=== PATIENT | female | born 1975 | race Caucasian/White ===

== ENCOUNTER → 2022-07-31 14:59 | Outpatient (BNVA) | payer MEDICARE, SELFPAY | PROVIDERS: PCP Student in an Organized Health Care Education/Training Program; Visit Provider Nurse Practitioner Family | DX: Z12.11 Encounter for screening for malignant neoplasm of colon (principal) | CPT/HCPCS: 99202 ==

== ENCOUNTER 2023-04-04 10:08 | Outpatient (REF) | payer MEDICARE, SELFPAY ==
[2023-04-04 14:15] LABS: MANUAL DIFF FLAG NO
[2023-04-04 14:18] LABS: Basophils Absolute Auto 0.1 X10*3/uL (0.0-0.2); Basophils Percent Auto 0.6 % (0-2); Eosinophils Absolute Auto 0.5 X10*3/uL (0.0-0.4); Eosinophils Percent Auto 4.6 % (0-4); Hematocrit 41.3 % (37.0-47.0); Hemoglobin 13.6 g/dl (12.0-16.0); Imm Gran Abs Auto 0.04 X10*3/uL (0.00-0.03); Imm Gran Pct Auto 0.4 % (0.0-0.4); Lymphocytes Absolute Auto 2.4 X10*3/uL (1.2-4.9); Lymphocytes Percent Auto 23.9 % (20-40); Mean Corpuscular HGB Conc 32.9 g/dl (31.0-35.0); Mean Corpuscular Hemoglobin 28.5 pg (27.0-33.0); Mean Corpuscular Volume 86.6 fL (80.0-98.0); Mean Platelet Volume 12.2 fL (9.4-12.3); Monocytes Absolute Auto 0.6 X10*3/uL (0.1-1.2); Monocytes Percent Auto 5.6 % (2-11); Neutrophils Absolute Auto 6.4 x10*3/uL (2.0-8.3); Neutrophils Percent Auto 64.9 % (45-73); Platelet Count 259 X10*3/uL (160-400); Red Blood Count 4.77 X10*6/uL (4.20-5.50); Red Cell Distribution Width 13.2 % (11.0-16.0); White Blood Count 9.9 X10*3/uL (4.8-10.8)
[2023-04-04 14:33] LABS: Alanine Aminotransferase 18 U/L (0-31); Albumin Level 4.1 g/dL (3.5-5.0); Alkaline Phosphatase 64 U/L (39-117); Anion Gap 14 (12-20); Aspartate Amino Transferase 16 U/L (5-31); Bilirubin Direct 0.3 mg/dL (0.0-0.5); Bilirubin Total 0.5 mg/dL (0.0-1.0); Blood Urea Nitrogen 10 mg/dL (9-16); Calcium 9.4 mg/dL (8.4-10.2); Carbon Dioxide 21 mmol/L (22-29); Chloride 106 mmol/L (96-108); Cholesterol 162 mg/dL (<200); Estimated Glomerular Filt Rate > 60; Glucose Fasting 72 mg/dL (60-99); HDL Cholesterol 40 mg/dL (>40); LDL Cholesterol Calculated 107 mg/dL (<100); Potassium 3.7 mmol/L (3.3-5.1); Sodium 137 mmol/L (135-145); Total Protein 7.6 g/dL (6.5-8.0); Triglycerides 76 mg/dL (<150)
[2023-04-05 08:37] LABS: ~Hepatitis C Antibody Nonreactive (Nonreactive)
[2023-04-07 17:27] LABS: HIV RNA PCR Qn Copies Not Detected Copies/mL; HIV RNA PCR Qn Log Copies Not Detected Log cps/mL
== END 2023-04-04 10:09 | disposition home or self-care (01) ==
LOC: HO.CHCLDS 10:08
PROVIDERS: Visit Provider Student in an Organized Health Care Education/Training Program
DX: Z00.00 Encounter for general adult medical examination without abnormal findings (principal); F32.A Depression, unspecified; E78.5 Hyperlipidemia, unspecified
CPT/HCPCS: 36415; 80048; 80061; 80076; 85025; 86803; 87536; 87900

== ENCOUNTER 2024-08-25 09:20 | Outpatient (REF) | payer MEDICARE, SELFPAY ==
--- OUTSIDE RECORDS SUMMARY | 2024-08-25 10:01 | XMS_ITS | Encounter Summary ---
Author Organization [employer] Address [address] [place] [address] Care Team Providers Care Overnight Caregiver Name Role Phone Carolina Marina MD Primary Care Provider [phone] Reason for Visit * Reason Onset Date Comments Appointment Request 08/20/2024 Encounter Details Date Type Department Care Team ([facility] Contact Info) Description 08/20/2024 Telephone [facility] MEDICINE [address] [place] [address] Carolina Marina MD [address] [place] [address] Appointment Request Social History Tobacco Use Types Packs/Day Years Used Date Smoking Tobacco: Never Smokeless Tobacco: Never Alcohol Use Standard Drinks/Week Comments Never 0 (1 standard drink = 0.6 oz pur e alcohol) Alcohol Answer Date Recorded Frequency of Alcohol Consumption Not on file 04/04/2023 Average Number of Drinks Not on file 023 Frequency of Binge Drinking Not on file 09/2022 Score 0 04/04/2023 Depression Answer Date Recorded Patient Health Questionnaire-9 Score 5 04/04/2023 Housing Stability Answer Date Recorded What is your housing situation today? I have zane rueda 04/16/[address] you li ve. Do you have problems with any of the following? None of the above 04/16/2023 Food Insecurity Answer Date Recorded Within the past 12 months, y ou worried that your food would run out before you got money to buy more: Never True 04/16/2023 Within the past 12 months,th e food you bought just didn't last and you didn't have enough money to get more: Never True Transportation Answer Date Recorded In the past 12 months, has l ack of transportation kept you from medical appts, meetings, work or from getting things needed for daily living? No 04/16/2023 Utilities Answer Date Recorded In the past 12 months, has t he electric, gas, oil or water company threatened to shut off services in your home? No 04/16/2023 Depression Answer Date Recorded Patient Health Questionnaire-2 Score 2 04/04/2023 Comments No Sex and Gender Information Value Date Recorded Sex Assigned at Female 05/01/2022 10:16 AM EDT Legal Sex Female 10:16 AM EDT Gender Identity Female 05/01/2022 10:16 AM EDT Sexual Orientation Straight 05/01/2022 10 :16 AM EDT documented as of this encounter Miscellaneous Notes * Telephone Encounter - Dharmesh Kingstonnandez - 08/20/2024 3:58 PM EST Tc from pt requesting a Apt with PCP. Pt states would like to talk to her and get a Physical done. Contact pt at [phone] documented in this encounter Plan of Treatment Upcoming Encounters Date Type Department Care Team ([facility] st Contact Info) Description 09/25/2024 11:00 AM EDT Procedure Visit [facility] MED & PEDS [address] [place] [address] Stormy Schwartz CNM [address] [place] [address] 11/28/2024 9:30 AM EDT Clinical Support [facility] MED & PEDS [address] [place] [address] documented as of this encounter Visit Diagnoses Not on filedocumented in this encounter Additional Health Concerns Assessment Noted Time PHQ-9 Depression Total Score: 5 04/04/20 23 9:51 AM EDT documented as of this encounter Care Teams Overnight Caregiver Relationship Specialty Start Date End Date Carolina Marina MD [address] [place] [address] PCP - General Family Medicine 06/17/12 documented as of this encounter
--- OUTSIDE RECORDS SUMMARY | 2024-08-25 10:01 | XMS_ITS | Encounter Summary ---
Author Organization [employer] Address [address] [place] [address] Care Team Providers Care Oil Well Cable Tool Operator Name Role Phone Carolina Marina MD Primary Care Provider Encounter Details Date Type Department Care Team (Latest Contact Info) Description 08/25/2024 Travel Social History Tobacco Use Types Packs/Day Years [...] Answer Date Recorded Patient Health Questionnaire-9 Score 7 08/25/2024 Patient Health Questionnaire-9 Score 7 08/25/2024 Last PHQ-9: Questionnaire Data Not on file 0 08/25/2024 Housing Stability Answer Date Recorded What is [...] Answer Date Recorded Patient Health Questionnaire-2 Score 4 08/25/2024 Comments No Sex and Gender Information Value Date Recorded Sex Assigned at Female 05/01/2022 10:16 AM EDT Legal Sex Female 10:16 AM EDT Gender Identity Female 05/01/2022 10:16 AM EDT Sexual Orientation Straight 05/01/2022 10 :16 AM EDT documented as of this encounter Plan of Treatment Upcoming Encounters Date Type Department Care Team ([facility] st Contact Info) Description 09/25/2024 11:00 AM EDT Procedure Visit [facility] MED & PEDS [address] [place] [address] Stormy Schwartz CNM [address] [place] [address] 11/28/2024 9:30 AM EDT Clinical Support [facility] MED & PEDS [address] [place] [address] documented as of this encounter Visit Diagnoses Not on filedocumented in this encounter Additional Health Concerns Assessment Noted Time PHQ-9 Depression Total Score: 7 08/25/19 25 8:48 AM EST documented as of this encounter Care Teams Oil Well Cable Tool Operator Relationship Specialty Start Date End Date Carolina Marina MD [address] [place] [address] PCP - General Family Medicine 06/17/12 documented as of this encounter
--- OUTSIDE RECORDS SUMMARY | 2024-08-25 10:01 | XMS_ITS | Encounter Summary ---
Author Organization [employer] [facility] Address [address] [facility] 7 [place] [address] Care Team Providers Care Academic Dean Name Role Phone Marcello Marina MD Primary Care Provider [phone] Reason for Referral * Imaging (Routine) - Pending Review Specialty Diagnoses / Procedures Referred By Contmehdi t Referred To Contact Radiology Diagnoses Encounter for screening mammogram for breast cancer Procedures BI Mammogram Screening Tomosynthesis Bilateral Marcello Marina MD [address] [place] [address] Phone: tel: fax: [address] Phone: tel: fax: Referral ID Status Reason Start Date Expiration Date V isits Requested Visits Authorized [id number] Pending Review 08/25/2024 08/25/2025 1 1 Reason for Visit * Reason Comments Annual Exam Encounter Details Date Type Department Care Team ([facility] Contact Info) Description 08/25/2024 8:30 AM EST Office Visit [facility] MED & PEDS [address] [place] [address] Marcello Marina MD [address] [place] [address] Elevated BP without diagnosis of hypertension (Primary Dx); Encounter for screening mammogram for breast cancer; Encounter for immunization; Screen for STD (sexually transmitted disease); Gastroesophageal reflux disease without esophagitis Social History Tobacco Use Types Packs/Day Years Used Date Smoking Tobacco: Never Smokeless Tobacco: Never Tobacco Cessation:Counseling Given: Not Answered Alcohol Use Standard Drinks/Week Comments Never 0 [...] AM EDT documented as of this encounter Last Filed Vital Signs Vital Sign Reading Time Taken Comments Blood Pressure 140/89 08/25/2024 8:46 AM EST Pulse 65 08/25/2024 8:46 AM EST Temperature 36.3 ??C (97.3 ??F) 08/25/2024 8:46 AM ES T Respiratory Rate 18 08/25/2024 8:46 AM EST Oxygen Saturation - - Inhaled Oxygen Concentration - - Weight 78.9 kg (174 lb) 08/25/2024 8:46 AM EST Height 158.8 cm (5' 2.5 ) 08/25/2024 8:46 AM EST Body Mass Index 31.32 08/25/2024 8:46 AM EST documented in this encounter Progress Notes * Marcello Marina MD - 08/25/2024 8:30 AM EST Subjective Patient ID: Mellisa Shin is a 49 y.o. female who presents for Annual Exam. Hypertension This is a new problem. The current episode started more than 1 month ago. The problem is unchanged.The problem is uncontrolled. Pertinent negatives include no chest pain, headaches, neck pain, palpitations or shortness of breath. Risk factors for coronary artery disease include family history, obesity and sedentary lifestyle. Past treatments include nothing. Review of Systems Constitutional: Negative. Respiratory: Negative. Negative for shortness of breath. Cardiovascular: Negative for chest pain and palpitations. Gastrointestinal: Negative. Genitourinary: Negative. Musculoskeletal: Negative for neck pain. Neurological: Negative for headaches. Objective Physical Exam Constitutional: Appearance: Normal appearance. HENT: Head: Normocephalic and atraumatic. Right Ear: Tympanic membrane normal. Left Ear: Tympanic membrane normal. Mouth/Throat: Mouth: Mucous membranes are moist. Eyes: Pupils: Pupils are equal, round, and reactive to light. Cardiovascular: Rate and Rhythm: Normal rate and regular rhythm. Pulmonary: Effort: Pulmonary effort is normal. Breath sounds: Normal breath sounds. Abdominal: General: Abdomen is flat. Palpations: Abdomen is soft. Musculoskeletal: General: Normal range of motion. Skin: General: Skin is warm. Neurological: General: No focal deficit present. Mental Status: She is alert. Psychiatric: Mood and Affect: Mood normal. Behavior: Behavior normal. Assessment/Plan Diagnoses and all orders for this visit: Elevated BP without diagnosis of hypertension Maintain a low-sodium diet (less than 2 grams per day). Maintain a regular cardiovascular exercise program. Advised to maintain a low-fat, low-cholesterol diet. Counseled regarding importance of weight loss. Counseled re: potential co-morbidities including cardiovascular disease. - Basic Metabolic Panel; Future - Lipid Panel, Standard; Future - Hepatic Function Panel; Future - Hemoglobin A1c; Future Encounter for screening mammogram for breast cancer Encounter for immunization - TDAP VACCINE 7 yrs + Screen for STD (sexually transmitted disease) - Hepatitis C Antibody with Reflex to HCV, RNA, Quantitative, Real-Time PCR; Future - HIV-1/2 Antigen and Antibodies, Fourth Generation, with Reflexes; Future Gastroesophageal reflux disease without esophagitis Other orders Avoid provocative foods: citrus, alcohol, coffee, chocolate, mints. Eat smaller meals, no eating three hours prior to bedtime. Started on Omeprazole daily - omeprazole OTC (PriLOSEC OTC) 20 MG EC tablet; Take 1 tablet (20 mg) by mouth before breakfast. - Blood Pressure kit; Check blood pressure daily documented in this encounter Miscellaneous Notes * Addendum Note - Marcello Marina MD - 08/25/2024 8:30 AM ESTAddended by: MARCELLO MARINA on: 08/25/2024 09:34 AM Modules accepted: Orders documented in this encounter Plan of Treatment Upcoming Encounters Date Type Department Care Team ([facility] st Contact Info) Description 09/25/2024 11:00 AM EDT Procedure Visit [facility] MED & PEDS [address] [place] [address] Stormy Schwartz, [place] [address] [place] [address] 11/28/2024 9:30 AM EDT Clinical Support [facility] MED & PEDS [address] [place] [address] Scheduled Orders Name Type Priority Associated Diagnoses Orde r Schedule Basic Metabolic Panel Lab Routine Elevated BP without diagnosis of hypertension Expected: 08/25/2024 (Approximate), Expires: 08/25/2025 Lipid Panel, Standard Lab Routine Elevated BP without diagnosis of hypertension Expected: 08/25/2024 (Approximate), Expires: 08/25/2025 Hepatic Function Panel Lab Routine Elevated BP without diagnosis of hypertension Expected: 08/25/2024 (Approximate), Expires: 08/25/2025 Hemoglobin A1c Lab Routine Elevated BP without diagnosis of hypertension Expected: 08/25/2024 (Approximate), Expires: 08/25/2025 Hepatitis C Antibody with Reflex to HCV, RNA, Quantitative, Real-Time PCR Lab Routine Screen for STD (sexually transmitted disease) Expected: 08/25/2024, Expires: 08/25/2025 HIV-1/2 Antigen and Antibodies, Fourth Generation, with Reflexes Lab Routine Screen for STD (sexually transmitted disease) Expected: 08/25/2024 (Approximate), Expires: 08/25/2025 BI Mammogram Screening Tomosynthesis Bilateral Imaging Routine Encounter for screening mammogram for breast cancer Expected: 08/25/2024, Expires: 10/23/2025 documented as of this encounter Visit Diagnoses Diagnosis Elevated BP without diagnosis of hypertension- Primary Encounter for screening mammogram for breast cancer Encounter for immunization Screen for STD (sexually transmitted disease) Screening examination for venereal disease Gastroesophageal reflux disease without esophagitis Esophageal reflux documented in this encounter Additional Health Concerns Assessment Noted Time PHQ-9 Depression Total Score: 7 08/25/19 25 8:48 AM EST documented as of this encounter Care Teams Academic Dean Relationship Specialty Start Date End Date Marcello Marina MD [address] [place] [address] PCP - General Family Medicine 06/17/12 documented as of this encounter
--- OUTSIDE RECORDS SUMMARY | 2024-08-25 10:01 | XMS_ITS | Encounter Summary ---
Author Organization [employer] Address [address] [place] [address] Care Team Providers Care Insurance Instructor Name Role Phone Carolina Marina MD Primary Care Provider [phone] Encounter Details Date Type Department Care Team (Latest Contact Info) Description 08/24/2024 Travel Social History Tobacco Use Types Packs/Day [...] Upcoming Encounters Date Type Department Care Team ([facility] st Contact Info) Description 09/25/2024 11:00 AM EDT Procedure Visit [facility] MED & PEDS [address] [place] [address] Stormy Schwartz CNM [address] [place] [address] 11/28/2024 9:30 AM EDT Clinical Support [facility] MED & PEDS [address] [place] [address] documented as of this encounter Visit Diagnoses Not on filedocumented in this encounter Additional Health Concerns Assessment Noted Time PHQ-9 Depression Total Score: 5 04/04/20 23 9:51 AM EDT documented as of this encounter Care Teams Insurance Instructor Relationship Specialty Start Date End Date Carolina Marina MD [address] [place] [address] PCP - General Family Medicine 06/17/12 documented as of this encounter
--- OUTSIDE RECORDS SUMMARY | 2024-08-25 10:01 | XMS_ITS | Encounter Summary ---
Author Organization [employer] Address [address] [facility] [address] [place] [address] Care Team Providers Care Molding Machine Operator Helper Name Role Phone Carolina Marina MD Primary Care Provider [phone] Reason for Visit * Reason Onset Date Comments Transition Of Care (Tcm) 08/22/2024 Encounter Details Date Type Department Care Team ([facility] Contact Info) Description 08/22/2024 Telephone [facility] MED & PEDS [address] [place], [place] [phone] Carolina Marina MD [address] [place] [address] Transition Of Care (Tcm) Social History Tobacco Use Types Packs/Day Years [...] encounter Miscellaneous Notes * Telephone Encounter - Rosa Haynes [place] - 08/22/2024 2:37 PM EST Booked a PE appt on 08/[address] Marina at 8:30am. Agreed with date and time. documented in this encounter Plan of Treatment Upcoming Encounters Date Type Department Care Team (Late st Contact Info) Description 09/25/2024 11:00 AM EDT Procedure Visit [facility] MED & PEDS [address] [place] [address] Stormy Schwartz CNM [address] [place] [address] 11/28/2024 9:30 AM EDT Clinical Support [facility] MED & PEDS [address] [place] [address] documented as of this encounter Visit Diagnoses Not on filedocumented in this encounter Additional Health Concerns Assessment Noted Time PHQ-9 Depression Total Score: 5 04/04/20 23 9:51 AM EDT documented as of this encounter Care Teams Molding Machine Operator Helper Relationship Specialty Start Date End Date Carolina Marina MD [address] [place] [address] PCP - General Family Medicine 06/17/12 documented as of this encounter
--- OUTSIDE RECORDS SUMMARY | 2024-08-25 10:01 | XMS_ITS | Clinical Summary ---
Author Organization [employer] Address [address] [facility] [address] [place] [address] Care Team Providers Care Customer Care Professional Name Role Phone Carolina Marina MD Primary Care Provider [phone] Allergies No known active allergies Medications ketoconazole (Nizoral) 2 % shampooIndicat ions:Dandruff in adult Apply topically 2 (two) times a week. 120 mL 3 05/17/20 23 Active ibuprofen 400 MG tablet Take 1 tablet (400 mg) by mouth every 6 (six) hours if needed for moderate pain or fever for up to 30 doses. 30 tablet 11/16/19 24 Active lamoTRIgine (LaMICtal) 100 MG tablet Take 100 mg by mouth Once per day. 10/25/19 24 Active omeprazole OTC (PriLOSEC OTC) 20 MG EC tablet Take 1 tablet (20 mg) by mouth before breakfast. 90 tablet 3 08/25/19 25 026 Active Blood Pressure kit Check blood pressure daily 1 kit 08/25/19 25 Active omeprazole OTC (PriLOSEC OTC) 20 MG EC tablet Take 1 tablet by mouth at bed time. 01/18/20 19 025 Discontinued(Re order (will not trigger notification to Pharmacy)) clobetasol (Temovate) 0.05 % external solution Apply topically 2 times daily. 50 mL 3 04/04/20 23 025 Discontinued buPROPion (Wellbutrin) 75 MG tablet Take 1 tablet (75 mg) by mouth in the morning. 30 tablet 11 04/04/20 23 025 Discontinued fluocinolone (Lolita-Smoothe /FS Body) 0.01 % external oilIndications :Dandruff in adult Apply topically 2 (two) times a week. 118 mL 3 05/17/20 23 025 Discontinued cyclobenzaprin e (Flexeril) 5 MG tablet Take 1 tablet by mouth at bedtime as needed for neck muscle pain 15 tablet 11/16/19 24 025 Discontinued Active Problems Problem Noted Date Diagnosed Date Gastroesophageal reflux disease without esophagi tis 08/25/2024 Depressive disorder 09/26/2011 Encounters Date Type Department Care Team Description 08/25/2024 8:30 AM EST Office Visit [facility] MED & PEDS [address] [place], [place] [phone] Carolina Marina MD Elevated BP without diagnosis of hypertension (Primary Dx); Encounter for screening mammogram for breast cancer; Encounter for immunization; Screen for STD (sexually transmitted disease); Gastroesophageal reflux disease without esophagitis 08/25/2024 Travel 08/24/2024 Travel 08/22/2024 Telephone [facility] MED & PED[facility] [address] [place] [address] Carolina Marina MD Transition Of Care (Tcm) 08/20/2024 Telephone [facility] MEDICINE [address] [place], [place] [phone] Carolina Marina MD Appointment Request from Last 3 Months Immunizations Name Administration Dates Next Due Hep A / Hep B 11/05/2014,09/25/2013,08/27/2013 Influenza, IIV3, injectable 06/05/2014 Tdap 08/25/2024,06/05/2014 Social History Tobacco Use Types Packs/Day Years [...] Orientation Straight 05/01/2022 10 :16 AM EDT Last Filed Vital Signs Vital Sign Reading Time Taken Comments Blood Pressure 140/89 08/25/2024 8:46 AM EST Pulse 65 08/25/2024 8:46 AM EST Temperature 36.3 ??C (97.3 ??F) 08/25/2024 8:46 AM ES T Respiratory Rate 18 08/25/2024 8:46 AM EST Oxygen Saturation 97% 11/16/2023 10:29 AM EDT Inhaled Oxygen Concentration - - Weight 78.9 kg (174 lb) 08/25/2024 8:46 AM EST Height 158.8 cm (5' 2.5 ) 08/25/2024 8:46 AM EST Body Mass Index 31.32 08/25/2024 8:46 AM EST Plan of Treatment Upcoming Encounters Date Type Department Care Team (Late st Contact Info) Description 09/25/2024 11:00 AM EDT Procedure Visit [facility] MED [facility] PED[facility] [address] [place] [address] Stormy Schwartz, CNM [address] [place] [address] 11/28/2024 9:30 AM EDT Clinical Support [facility] P[facility] [address] [place] [address] Health Maintenance Due Date Last Done Comments CT Colonography 1974 Colonoscopy 1974 Colorectal Cancer Screening 1974 Dental Oral Exam 1974 Dental Prophylaxis 1974 Dental X-Ray: Bitewings 1974 Dental X-Ray: Full Mouth 1974 FIT DNA/Cologuard 1974 FIT 1974 FOBT 1974 HIV Screening 1974 Sigmoidoscopy 1974 Family Planning (PISQ) 1989 Pap Smear 1995 Cervical Cancer Screening 01/28/2004 HPV/Cotest 01/28/2004 Mammogram 2014 Pneumococcal Vaccine: 50+ Years (1 of 1 - PCV) 01/28/2024 Zoster Vaccines (1 of 2) 01/28/2024 SDOH Screening 03/26/2024 03/26/2023 Influenza Vaccine (#1) 2024 06/05/2014 Postp oned from 03/02/2024 (Patient Refused) Alcohol/Substance Use Screening 08/25/2025 08/25/2024 COVID-19 Vaccine (3 - 2023-2 5 season) 2025 01/20/2021, 12/23/2020 Postponed from 03/02/2024 (Patient Refused) Depression Screening 08/25/2025 08/25/2024, 08/25/2024 Tobacco Screening 08/25/2025 08/25/2024 DTaP/Tdap/Td Vaccines (3 - T d or Tdap) 08/25/2034 08/25/2024, 06/05/2014 RSV Patients and Patients Aged 60 years or older (1 - 1-dose 75+ series) 2049 Hepatitis A Vaccines Aged Out 11/05/2014, 09/25/2013, 08/27/2013 No longer eligible based on patient's age to complete this topic Hepatitis B Vaccines Completed 11/05/2014, 09/25/2013, 08/27/2013 Hepatitis C Screening Completed 04/04/2023 HIB Vaccines Aged Out No longer eligi ble based on patient's age to complete this topic HPV Vaccines Aged Out No longer eligi ble based on patient's age to complete this topic IPV Vaccines Aged Out No longer eligi ble based on patient's age to complete this topic Meningococcal Vaccine Aged Out No rudolph fariha eligible based on patient's age to complete this topic RSV under 20 months Aged Out No longe r eligible based on patient's age to complete this topic Rotavirus Vaccines Aged Out No longer eligible based on patient's age to complete this topic Procedures Procedure Name Priority Date/Time Associated Diagnosis Comments HEPATITIS C AB W/REFL TO HCV RNA, QN, PCR Routine 04/04/2023 10:15 AM EDT PE (physical exam), annual from Last 3 Months or Most Recently Relevant to Health Maintenance Results * Hepatitis C Antibody with Reflex to HCV, RNA, Quantitative, Real-Time PCR (04/04/2023 10:15 AM EDT) Hepatitis C Antibody Nonreactive Nonreactive [facility] Comment:Antibodies to HCV no t detected; does not exclude early acuteHCV infection. Blood Venous blood specimen / Unknown 04/04/2023 10:15 AM EDT 04/04/2023 2:10 PM EDT us Carolina Marina MD LAB BLOOD ORDERABLES Final Resul t [facility] [address] [place], [place] [id number] [phone] from Last 3 Months or Most Recently Relevant to Health Maintenance Insurance [facility] Care Teams Customer Care Professional Relationship Specialty Start Date End Date Carolina Marina MD [address] [facility] [place] [address] PCP - General Family Medicine 06/17/12
--- OUTSIDE RECORDS SUMMARY | 2024-08-25 10:01 | XMS_ITS | Clinical Summary ---
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 Name Role Phone Carolina Marina MD Primary Care Provider Surgical History Surgery Date Site/Laterality Comments CHOLECYSTECTOMY 2016 PROCEDURE: CA LAPAROSCOPY SURG CHOLECYSTECTOMY; COMMENT: Teena CERVICAL BIOPSY W/ LOOP ELECTRODE EXCISION 06/29/2006 PROCEDURE: CA CONIZATION CERVIX W/WO D&C RPR ELTRD EXC; COMMENT: Teena Medical History Medical History Date Comments Anxiety state DX:Anxiety state History of vitamin D deficiency 11/05/2014 DX:History of vitamin D deficiency; COMMENT: Vitamin D = 17 Bacterial vaginosis 11/29/2011 DX:Bacterial vaginosis Vaginal yeast infection 01/31/2008 DX:Vagin al yeast infection; COMMENT: 11/01/05 H/O Leep 06/29/2006 DX:H/O LEEP; COM MENT: Teena History of colposcopy 04/10/2006 DX:History of colposcopy; COMMENT: OLIVIA 2 ASCUS with positive high ris k HPV cervical 02/12/2006 DX:ASCUS with positive high risk HPV cervical History of chlamydia 01/12/2005 DX:History of chlamydia History of depression DX:History of depression Carpal tunnel syndrome 2012 DX:Carpal tunnel syndrome History of anemia 10/28/2010 DX:History of anemia; COMMENT: H & H 10 33.1 Family History Medical History Relation Name Comments Asthma Maternal Grandfather Arthritis Mother Diabetes Mother Hyperlipidemia Mother Hypertension Mother Stroke Paternal Grandmother Breast cancer Neg Hx Ovarian cancer Neg Hx Relation Name Status Comments Brother x4 Alive Father Alive Maternal Grandfather Mother Alive Paternal Grandmother Sister x3 Alive Social History Tobacco Use Types Packs/Day Years Used Date Smoking Tobacco: Never Smokeless Tobacco: Never Alcohol Use Standard Drinks/Week Comments Yes 0 (1 standard drink = 0.6 oz pur e alcohol) Comments Unknown Sex and Gender Information Value Date Recorded Sex Assigned at Not on file Legal Sex Female 4:39 AM EST Gender Identity Not on file Sexual Orientation Not on file Obstetrics History Last Filed Vital Signs Vital Sign Reading Time Taken Comments Blood Pressure 116/88 03/27/2023 8:55 AM EDT Pulse 69 03/27/2023 8:55 AM EDT Temperature - - Respiratory Rate - - Oxygen Saturation - - Inhaled Oxygen Concentration - - Weight 79.8 kg (176 lb) 03/27/2023 8:55 AM EDT Height 162.6 cm (5' 4 ) 03/27/2023 8:55 AM EDT Body Mass Index 30.21 03/27/2023 8:55 AM EDT Plan of Treatment Health Maintenance Due Date Last Done Comments DTaP,Tdap,and Td Vaccines (1 - Tdap) 1993 Colorectal Cancer Screening: Colonoscopy 06/04/2022 Depression Screening 06/04/2022 HIV Screening 06/04/2022 Hepatitis C Screening 06/04/2022 Social Influencers of Health Screening 06/04/2022 Pneumococcal Vaccine: 50+ Years (1 of 1 - PCV) 01/28/2024 Zoster Vaccines (1 of 2) 01/28/2024 COVID-19 Vaccine (3 - 2023- season) 2024 01/20/2021, 12/23/2020 Influenza Vaccine (#1) 2024 Cervical Cancer Screening: Pap Smear 05/18/2024 05/18/2021, 04/07/2021 Breast Cancer Screening 04/12/2025 04/12/20 23, 05/12/2021, 03/04/2020, Additional history exists Hepatitis A Vaccines Aged Out 11/05/2014, 09/25/2013, 08/27/2013 No longer eligible based on patient's age to complete this topic Hepatitis B Vaccines Completed 11/05/2014, 09/25/2013, 08/27/2013 HIB Vaccines Aged Out No longer eligi ble based on patient's age to complete this topic HPV Vaccines Aged Out No longer eligi ble based on patient's age to complete this topic IPV Vaccines Aged Out No longer eligi ble based on patient's age to complete this topic MMR Vaccines Aged Out No longer eligi ble based on patient's age to complete this topic Meningococcal ACWY Vaccine Aged Out N o longer eligible based on patient's age to complete this topic Meningococcal B Vacine Aged Out No lo nger eligible based on patient's age to complete this topic Pneumococcal Vaccine: Pediatrics (0 to 5 Years) and At-Risk Patients (6 to 64 Years) Aged Out No longer eligible based on patient's age to complete this topic RSV Immunization Patients Under 20 months Aged Out No longer eligible based on patient's age to complete this topic Varicella Vaccines Aged Out No longer eligible based on patient's age to complete this topic Procedures Procedure Name Priority Date/Time Associated Diagnosis Comments [facility] SCREENING DIGITAL Routine 04/12/2023 4:26 PM EDT Encounter for screening mammogram for malignant neoplasm of breast PAP SMEAR Routine 05/18/2021 from Last 3 Months or Most Recently Relevant to Health Maintenance Results * ARTHUR SCREENING DIGITAL (04/12/2023 4:26 PM EDT) Anatomical Region Laterality Modality Mammography 04/11/2023 11:0 7 AM EDT Narrative 04/12/2023 4:26 PM EDT [facility] Diagnostic Imaging Department [address] [place] [address] Patient: ??SHIN,HAYLIE ?/Age/Sex: 1975 - 48 - F Unit#: ??[id number] ? Location/Status: ??SPDIMAM/REG CLI ? Mnemonic/Ordering Site: ??DIGSC/SPMAM Ordering Physician: ??RAMIRO MACIAS CNM [facility] Screening Digital - 04/11/23 - 1122 Report Status:Signed EXAM: [facility] Screening Digital EXAM DATE AND TIME: 04/11/2023 11:22 AM HISTORY: ??Screening. COMPARISON: ??05/12/21, 03/04/20, 10/17/18, 10/11/17 TECHNIQUE: Bilateral digital breast tomosynthesis was performed in the CC and MLO projections. Computer aided detection with [employer] 3D 3.1 was employed. TISSUE DENSITY: b. There are scattered areas of fibroglandular density. FINDINGS: No suspicious masses, grouped microcalcifications, or areas of architectural distortion are seen. Skin calcifications are again noted. The vascularity is unremarkable. IMPRESSION: Stable mammographic appearance of the breasts. ??No evidence of malignancy is seen. A negative mammogram in the presence of a clinically suspicious palpable abnormality does not preclude the possibility of malignancy or alter the indications for biopsy. BI-RADS: ??Category 2: Benign RECOMMENDATION(S): 1: Routine screening mammogram BILATERAL in 1 year. Dictating Physician: ??QUEENIE WILSON MD Electronically Signed by: ??QUEENIE WILSON MD Dic Date/Time: ??04/12/231625 Sign date/Time: ??04/12/231625 Procedure Note Queenie Wilson MD - 08/07/2023 [facility] Diagnostic Imaging Department [address] [place] [address] Patient: HAYLIE SHIN /Age/Sex: 1975 - 48 - F Unit#: [id number] Location/Status: SPDIMAM/REG CLI Mnemonic/Ordering Site: [facility] Ordering Physician: RAMIRO MACIAS CNM [facility] Screening Digital - 04/11/23 - 1122 Report Status:Signed EXAM: [facility] Screening Digital EXAM DATE AND TIME: 04/11/2023 11:22 AM HISTORY: Screening. COMPARISON: 05/12/21, 03/04/20, 10/17/18, 10/11/17 TECHNIQUE: Bilateral digital breast tomosynthesis was performed in the CCand MLO projections. Computer aided detection with [employer] 3D 3.1was employed. TISSUE DENSITY: b. There are scattered areas of fibroglandular density. FINDINGS: No suspicious masses, grouped microcalcifications, or areas ofarchitectural distortion are seen. Skin calcifications are again noted. The vascularityis unremarkable. IMPRESSION: Stable mammographic appearance of the breasts. No evidence of malignancyis seen. A negative mammogram in the presence of a clinically suspicious palpable abnormality does not preclude the possibility of malignancy or alter the indications for biopsy. BI-RADS: Category 2: Benign RECOMMENDATION(S): 1: Routine screening mammogram BILATERAL in 1 year. Dictating Physician: QUEENIE WILSON MD Electronically Signed by: QUEENIE WILSON MD Dic Date/Time: 04/12/231625 Sign date/Time: 04/12/231625 Ramiro Macias CNM IMG BI PROCEDURES Final Resul t * Pap smear (05/18/2021) 05/18/2021 Narrative HISTORICAL TESTING LAB RESULTING AGENCY - 06/06/2021 1:01 PM EST [id number] THINPREP PAP, IMAGED: NEGATIVE FOR SQUAMOUS INTRAEPITHELIAL LESION AND MALIGNANCY . REACTIVE CELLULAR CHANGES. NOTE: THE PAP TEST IS A SCREENING TEST WITH AN INHERENT FALSE NEGATIVE RATE. AUTOMATED PRESCREENING OF ALL LIQUID BASED SPECIMENS IS PERFORMED BY THE THINPREP IMAGING SYSTEM UNLESS OTHERWISE STATED. AKANKSHA TURNER(ASCP) (CASE SCREENED 06 02 2021) LUIS ALBERTO ALDRICH M.D. , PATHOLOGIST (CASE ELECTRONICALLY SIGNED 06 03 2021) RESULT OF APTIMA HIGH RISK HPV ASSAY: HIGH RISK HPV: ??NEGATIVE (SEROTYPES 16,18,31,33,35,39,45,51,52,56,58,59,66,68) COMPLETED ON 2021-05-20 ADEQUACY: SATISFACTORY ENDOCERVICAL/TRANSFORMATION ZONE COMPONENT PRESENT. SOURCE: THINPREP PAP HPV ANY DX: ??REFLEX 16 AND 18, CERVICAL, IMAGED CLINICAL INFORMATION: HPV ANY DIAGNOSIS. HORMONES, PAP HX 04/2021 UNSATISFACTORY, LMP 04/25/21 [Z12.4] Ramiro Macias [facility] LAB CYTOLOGY ORDERABLES Final Result HISTORICAL TESTING LAB RESULTING AGENCY from Last 3 Months or Most Recently Relevant to Health Maintenance Care Teams Market Basket Maker Relationship Specialty Start Date End Date Carolina Marina MD [address] [place] [id number] PCP - General 12/30/14
[2024-08-25 15:00] LABS: Anion Gap 10 (12-20)
[2024-08-25 15:02] LABS: Estimated Average Glucose 105 mg/dL; Hemoglobin A1c % 5.3 % (<6.0); Total Hemoglobin (HGBA1C) 3569.4978 umol/L
[2024-08-25 15:03] LABS: Alanine Aminotransferase 21 U/L (0-31); Albumin Level 4.1 g/dL (3.5-5.0); Alkaline Phosphatase 65 U/L (39-117); Bilirubin Direct 0.1 mg/dL (0.0-0.5); Bilirubin Total 0.4 mg/dL (0.0-1.0); Blood Urea Nitrogen 11 mg/dL (9-16); Calcium 9.3 mg/dL (8.4-10.2); Carbon Dioxide 26 mmol/L (22-29); Chloride 109 mmol/L (96-108); Cholesterol 191 mg/dL (<200); Estimated Glomerular Filt Rate > 60; Glucose Random 76 mg/dL (60-115); HDL Cholesterol 40 mg/dL (>40); LDL Cholesterol Calculated 127 mg/dL (<100); Potassium 3.7 mmol/L (3.3-5.1); Sodium 141 mmol/L (135-145); Total Protein 7.9 g/dL (6.5-8.0); Triglycerides 122 mg/dL (<150)
[2024-08-25 16:29] LABS: Aspartate Amino Transferase 23 U/L (5-31)
[2024-08-26 08:31] LABS: HIV AB/AG Nonreactive (Nonreactive); HIV Num 1 0.05 S/CO (0.00-0.99); ~HepC Num1 0.15 S/CO (0.00-0.79); ~Hepatitis C Antibody Nonreactive (Nonreactive)
== END 2024-08-25 09:21 | disposition home or self-care (01) ==
LOC: HO.CHCLDS 09:20
PROVIDERS: Visit Provider Student in an Organized Health Care Education/Training Program
DX: R03.0 Elevated blood-pressure reading, without diagnosis of hypertension (principal); Z11.3 Encounter for screening for infections with a predominantly sexual mode of transmission; Z13.1 Encounter for screening for diabetes mellitus
CPT/HCPCS: 36415; 80048; 80061; 80076; 83036; 86803; 87389

== ENCOUNTER 2024-09-25 14:11 | Outpatient (REF) | payer OTHER, SELFPAY ==
[2024-09-30 15:03] LABS: HPV Genotype 16 Negative (Negative); HPV Genotype 18 Negative (Negative); HPV High Risk Negative (Negative)
== END 2024-09-25 14:12 | disposition home or self-care (01) ==
LOC: HO.CHCLNP 14:11
PROVIDERS: Visit Provider Advanced Practice Midwife
DX: Z12.4 Encounter for screening for malignant neoplasm of cervix (principal); Z11.51 Encounter for screening for human papillomavirus (HPV)
CPT/HCPCS: 87626; 88175

== ENCOUNTER 2025-06-08 11:29 | Outpatient (REF) | payer OTHER, SELFPAY ==
[2025-06-08 14:58] LABS: MANUAL DIFF FLAG NO
[2025-06-08 15:05] LABS: Hematocrit 41.2 % (37.0-47.0); Hemoglobin 13.4 g/dl (12.0-16.0); Imm Gran Abs Auto 0.02 X10*3/uL (0.00-0.03); Imm Gran Pct Auto 0.2 % (0.0-0.4); Lymphocytes Absolute Auto 2.6 X10*3/uL (1.2-4.9); Mean Corpuscular HGB Conc 32.5 g/dl (31.0-35.0); Mean Corpuscular Hemoglobin 27.7 pg (27.0-33.0); Mean Corpuscular Volume 85.1 fL (80.0-98.0); NRBC Abs Auto 0.000 X10*3/uL (0.0-0.012); NRBC Pct Auto 0.0 /100WBC (0.0-0.2); Platelet Count 253 X10*3/uL (160-400); Red Blood Count 4.84 X10*6/uL (4.20-5.50); White Blood Count 8.1 X10*3/uL (4.8-10.8)
[2025-06-08 17:19] LABS: Alanine Aminotransferase 22 U/L (0-31); Albumin Level 4.4 g/dL (3.5-5.0); Alkaline Phosphatase 74 U/L (39-117); Anion Gap 8 (12-20); Aspartate Amino Transferase 21 U/L (5-31); Blood Urea Nitrogen 12 mg/dL (9-16); Calcium 9.0 mg/dL (8.4-10.2); Carbon Dioxide 24 mmol/L (22-29); Chloride 110 mmol/L (96-108); Cholesterol 208 mg/dL (<200); Estimated Glomerular Filt Rate > 60; HDL Cholesterol 47 mg/dL (>40); Potassium 3.7 mmol/L (3.3-5.1); Sodium 138 mmol/L (135-145); Total Protein 7.5 g/dL (6.5-8.0); Triglycerides 83 mg/dL (<150)
[2025-06-08 17:42] LABS: Thyroid Stimulating Hormone 3.23 uIU/mL (0.32-4.0)
== END 2025-06-08 11:30 | disposition home or self-care (01) ==
LOC: HO.CHCLDS 11:29
PROVIDERS: PCP Dietitian, Registered; Visit Provider Dietitian, Registered
DX: Z13.1 Encounter for screening for diabetes mellitus (principal); Z13.6 Encounter for screening for cardiovascular disorders; F31.9 Bipolar disorder, unspecified
CPT/HCPCS: 36415; 80053; 80061; 80076; 82248; 83036; 84443; 85025